=== PATIENT | female | born 2005 | race Caucasian/White ===

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

== ENCOUNTER → 2023-02-17 14:27 | Outpatient (CLI) | payer OTHER, SELFPAY ==
[2023-02-17 13:47] LABS: HCG,Quantitative < 2 mIU/ml (0-5.42)
== END ==
PROVIDERS: PCP Family Medicine; Visit Provider Nurse Practitioner Psychiatric/Mental Health
DX: Z32.00 Encounter for pregnancy test, result unknown (principal); F41.1 Generalized anxiety disorder
CPT/HCPCS: 36415; 84702

== ENCOUNTER 2024-09-22 18:28 | Outpatient (CLI) | payer BC, SELFPAY ==
[2024-09-22 18:32] LABS: Microscopic, Urine URINE MICROSCOPIC (MICROSCOPIC)
[2024-09-22 19:35] LABS: Appearance,Urine CLEAR (Clear); Bilirubin,Urine Negative (Negative); Blood, Urine Negative (Negative); Color,Urine YELLOW (Yellow); Glucose,Urine (UA) Negative (Negative); Ketones,Urine Negative (Negative); Leukocyte Esterase,Urine Negative (Negative); Nitrate,Urine Negative (Negative); Protein,Urine Negative (Negative); Specific Gravity, Urine 1.015 (1.005-1.030); Urobilinogen,Urine 0.2 EU/dl (0.2)
[2024-09-22 21:19] LABS: Bacteria,Urine 2+ /lpf; RBC,Urine Occasional #/hpf (0-3); Squamous Epithelial Cell,Urine Occasional #/hpf (0-5); WBC,Urine Occasional #/hpf (0-3)
[2024-09-23 20:06] LABS: Chlamydia trachomatis Negative (Negative); Neisseria gonorrhoeae Negative (Negative); Trichomonas vaginalis Negative (Negative)
== END 2024-09-22 23:59 | disposition home or self-care (01) ==
LOC: LAB.DROPOF 18:29
PROVIDERS: PCP Nurse Practitioner Family; Visit Provider Nurse Practitioner Family
DX: R10.9 Unspecified abdominal pain (principal); Z30.9 Encounter for contraceptive management, unspecified
CPT/HCPCS: 81001; 81025; 87086; 87491; 87591; 87661

== ENCOUNTER 2024-10-06 15:04 | Outpatient (CLI) | payer BC, SELFPAY ==
--- OUTSIDE RECORDS SUMMARY | 2024-08-09 07:45 | XMS_ITS ---
Author Organization [facility] Address [address] [place] [address] Care Team Providers Care Rodeo Clown Name Role Phone sandra sullivan Primary Care Provider Paulo Anthony Unavailable [phone] Allergies No Known Allergies REASON FOR VISIT Ear Pain Medications Medication SIG (Take, Route, Frequency, Duration) Notes Start Date End Date Status Amoxicillin-Pot Clavulanate 500-125 MG 1 tablet Orally every 12 hrs for 10 days 08/09/2024 08/19/2024 Active predniSONE 10 MG 1 tablet with food o r milk Orally twice a day for 6 days 08/09/2024 08/15/2024 Active traZODone HCl 100 MG 1 tablet at bedtime as needed Orally Once a day Active hydrOXYzine Pamoate 50 MG 1 capsule at b edtime as needed Orally Once a day Active Social History Tobacco Use: Social History Observation Description Date Details (start date - stop date) Never Smoker NA - NA Tobacco Control (Standard) Question Answer Notes Tobacco use: Nonsmoker AUDIT-C (Standard) Question Answer Notes Did you have a drink contain ing alcohol in the past year? Yes How often did you have a dri nk containing alcohol in the past year? Monthly or less (1 point) How many drinks did you have on a typical day when you were drinking in the past year? 1 or 2 drinks (0 point) How often did you have six o r more drinks on one occasion in the past year? Never (0 point) Points 1 Interpretation Negative Problems Problem Type SNOMED Code ICD Code Onset Dates Problem Status W/U Status Risk Notes Problem Acute bilateral otitis media (476112705) Acute bilateral otitis media (H66.93) Active confirmed Problem Middle ear effusion, bilateral (H65.93) Active confirmed Vital Signs Temperature 97.7 degrees Fahrenheit 08/10/19 Respiratory Rate 18 /min 08/09/2024 Blood pressure systolic 116 mm Hg 08/10/19 25 Blood pressure diastolic 68 mm Hg 025 Height 064 in 08/09/2024 Weight 0130 lbs 08/09/2024 BMI 22.31 kg/m2 08/09/2024 Encounters Encounter Location Date Provider Diagnosis [id number] [address] 08/09/2024 Pualo Olsen Acute bilateral otitis media H66.93 and Middle ear effusion, bilateral H65.93 Assessments Encounter Date Diagnosis (ICD Code) Assessment Notes Treatment Notes Treatment Clinical Notes Section Notes 08/09/2024 Acute bilateral otitis media (ICD-10 - H66.93) Ear Infection (Otitis Media): Care Instructions material was printed 08/09/2024 Middle ear effusion, bilateral (ICD-10 - H65.93) Middle Ear Fluid: Care Instructions material was printed 08/09/2024 Other Amoxicillin and Clavulanic Acid material was printed, Prednisone material was printed Plan Of Treatment Medication Medication Name Sig Start Date Stop Date Notes Amoxicillin-Pot Clavulanate 500-125 MG 1 tablet Orally every 12 hrs for 10 days 08/09/2024 08/19/2024 predniSONE 10 MG 1 tablet with food o r milk Orally twice a day for 6 days 08/09/2024 08/15/2024 Treatment Notes Assessment Notes Acute bilateral otitis media Ear Infecti on (Otitis Media): Care Instructions material was printed Middle ear effusion, bilateral Middle Ea r Fluid: Care Instructions material was printed Other Amoxicillin and Clav ulanic Acid material was printed, Prednisone material was printed Next Appt Details Follow Up: prn, Reason: Progress Notes * BRIAN ANSARIDOB:2004 (19 yo F)Acc No.[id number]:08/09/2024 Progress Notes Patient: BRIAN ALVAREZ Provider: Blanca Olsen, MSN, AIRPORT SCREENER, NERVE SPECIALIST-BC :2005 A ge:19 Y S ex:Female Date:08/09/2024 External Visit ID:[id number] Address:[address] [place], [place]-[address] Pcp:sandra sullivan Subjective: * Chief Complaints: * 1 . Ear Pain. * HPI: C onstitutional: 19 year old female presents to clinic with complaints of ear pain/fullness starting 3 days ago. Pain 5/10 on Beatty scale. Has not taken any otc medications. Has not received flu vaccination. D epression/Anxiety Screening: Depression Screening D epression Screening Findings N egative. P HQ-2 (2015 Edition) L ittle interest or pleasure in doing things? N ot at all, F eeling down, depressed, or hopeless? N ot at all, T otal Score 0 . * ROS: E ARS: ear pain y es. s ensation of fullness y es. ? * Medical History: A nxiety, Sleep pattern disturbance. * Surgical History: D enies Past Surgical History. * Hospitalization/Major Diagno stic Procedure: D enies Past Hospitalization. * Family History: F ather: alive. M other: alive. 1 brother(s) - healthy. . N on-Contributory. * Social History: D rug/Alcohol: A DAVID-C (Standard) D id you have a drink containing alcohol in the past year? Y es, H ow often did you have a drink containing alcohol in the past year? M onthly or less (1 point), H ow many drinks did you have on a typical day when you were drinking in the past year? 1 or 2 drinks (0 point), H ow often did you have six or more drinks on one occasion in the past year? N ever (0 point), P oints 1 , I nterpretation N egative. T obacco Use: T obacco Control (Standard) T obacco use: N onsmoker. * Medications: T aking hydrOXYzine Pamoate 50 MG Capsule 1 capsule at bedtime as needed Orally Once a day , Taking traZODone HCl 100 MG Tablet 1 tablet at bedtime as needed Orally Once a day , Medication List reviewed and reconciled with the patient * Allergies: N .K.D.A. Objective: * Vitals: T emp:97.7, Pulse:99, RR:18, BP:116/68, Pain (at time of visit):5/10, LNMP: 07-18-24, Ht: 064, Wt: 0130, BMI:22.31. * Examination: F ocused Exam: GENERAL: a lert and oriented x 4, no acute distress, dress appropriate for the environment & temp, well-groomed, appears well. HEAD: s ymmetrical facial features, normocephalic. EYES: c onjunctiva pink w/o inflammation or pallor, sclera white, PERRLA, nystagmus absent, pupil size normal, no discharge. EARS: b ilateral, ---TM---, TM red, TM dull, dense white plaques, TM bulging, fluid visualized behind TM. NOSE - --DISCHARGE---, no discharge, ---SEPTUM---, no septal deviation or perforation, ---MUCOSA---, inflamed mucosa, turbinates swollen, red. MOUTH AND THROAT: l ips pink, moist, oral mucosa pink, moist, w/o lesions or discolorations, uvula midline, pharynx pink, moist, w/o infection, no tonsillar enlargement, no exudate. NECK: - --LYMPH NODES---, Post Auricular lymph nodes, Tender, Shotty nodes. RESPIRATORY: b reath sounds clear throughout, respiration even and unlabored. Assessment: * Assessment: 1. A cute bilateral otitis media - H66.93 (Primary) 2 . M iddle ear effusion, bilateral - H65.93 Plan: * Treatment: 2. M iddle ear effusion, bilateral Start predniSONE Tablet, 10 MG, 1 tablet with food or milk, Orally, twice a day, 6 days, 12 Tablet, Refills 0. Notes: Middle Ear Fluid: Care Instructions material was printed 3. O thers Notes: Amoxicillin and Clavulanic Acid material was printed, Prednisone material was printed ? * Immunizations: Immunization record has been reviewed and updated. * Procedure Codes: C ODER Sending to Commercial Interior Designer for Code Review * Follow Up: p rn * Billing Information: * Visit Code: * Procedure Codes: CAR ICER Sending to Commercial Interior Designer for Code Review. Care Plan Details* Images * [id number], Haley [id number] * Sign off status: Completed true * Provider: Blanca Olsen, MSN, AIRPORT SCREENER, NERVE SPECIALIST-BC Date: 0 08/09/2024 Generated for Printing/Faxing/eTransmitting on: 0 10/06/2024 02:07 PM CDT History and Physical Notes * HPI (History of Present Illness) Category Sub-Category Detail Notes Category Not es Constitutional 19 year old female presents to clinic with complaints of ear pain/fullness starting 3 days ago. Pain 5/10 on Beatty scale. Has not taken any otc medications. Has not received flu vaccination. Depression/Anxiety Screening Depression Screening Depression Screening Findings: Negative PHQ-2 (2015 Edition) Little interest or pleasure in doing things?: Not at all Feeling down, depressed, or hopeless?: N ot at all Total Score: 0 Examination Category Sub-Category Detail Notes Category Not es Focused Exam HEAD: symmetrical facial features, normocephalic EYES: conjunctiva pink w/o inflammation or pallor, sclera white, PERRLA, nystagmus absent, pupil size normal, no discharge EARS: bilateral, ---TM---, TM red, TM dull, dense white plaques, TM bulging, fluid visualized behind TM NOSE ---DISCHARGE---, no discharge, ---SEPTUM---, no septal deviation or perforation, ---MUCOSA---, inflamed mucosa, turbinates swollen, red MOUTH AND THROAT: lips pink, moist, or al mucosa pink, moist, w/o lesions or discolorations, uvula midline, pharynx pink, moist, w/o infection, no tonsillar enlargement, no exudate NECK: ---LYMPH NODES---, P ost Auricular lymph nodes, Tender, Shotty nodes RESPIRATORY: breath sounds clear throughout, respiration even and unlabored GENERAL: alert and oriented x 4, no acute distress, dress appropriate for the environment & temp, well-groomed, appears well
--- OUTSIDE RECORDS SUMMARY | 2024-10-06 15:07 | XMS_ITS | Encounter Summary ---
Author Organization Healthcare Address [address] [place] [address] Care Team Providers Care Saddle And Side Wire Stitcher Name Role Phone Pcp, No Primary Care Provider Unavailabl e Encounter Details Date Type Department Care Team (Latest Contact Info) Description 09/21/2024 Travel Social History Tobacco Use Types Packs/Day Years Used Date Smoking Tobacco: Never Assessed Comments Unknown Sex and Gender Information Value Date Recorded Sex Assigned at Not on file Legal Sex Female 7:33 PM EDT Gender Identity Not on file Sexual Orientation Not on file documented as of this encounter Plan of Treatment Not on file documented as of this encounter Visit Diagnoses Not on filedocumented in this encounter Additional Health Concerns Assessment Noted Time A Body Mass Index follow-up plan has been documented for the patient 09/21/2024 1:25 PM EDT documented as of this encounter Care Teams Saddle And Side Wire Stitcher Relationship Specialty Start Date End Date Pcp, Rocio [address] [place] [address] PCP - General Family Medicine 08/31/24 documented as of this encounter
--- OUTSIDE RECORDS SUMMARY | 2024-10-06 15:07 | XMS_ITS | Encounter Summary ---
Author Organization Healthcare Address [address] [place] [address] Care Team Providers Care Flotation Tender Name Role Phone Pcp, No Primary Care Provider Unavailabl e Encounter Details Date Type Department Care Team (Latest Contact Info) Description 09/01/2024 Travel Social History Tobacco Use Types Packs/Day [...] plan has been documented for the patient 09/01/2024 3:31 PM EDT documented as of this encounter Care Teams Flotation Tender Relationship Specialty Start Date End Date Pcp, Rocio [address] [place] [address] PCP - General Family Medicine 08/31/24 documented as of this encounter
--- OUTSIDE RECORDS SUMMARY | 2024-10-06 15:08 | XMS_ITS | Clinical Summary ---
Author Organization Healthcare Address [address] [place] [address] Care Team Providers Care Plastic Surgeon Name Role Phone Pcp, No Primary Care Provider Unavailabl e Encounters * This document contains information received from the source organization and may not represent a complete record from that organization. Date Type Department Care Team Description 09/21/2024 Travel 09/01/2024 Travel from Last 3 Months Immunizations Immunization Administration Dates Next Due DTaP, Unspecified 08/23/2008, 5,2003,2003, 2003 HPV, Quadrivalent 11/13/2015 Hep A, Unspecified 12/01/2017,06/02/2017 Hep B, Unspecified 2003,2003, 003 Hep B, adult 01/15/2024 HepB-CpG 01/15/2024 HiB, unspecified 07/24/2004,02/10/2004, 4,2003 IPV 08/23/2008 MMR 08/23/2008,03/13/2004 Meningococcal ACWY, unspecified 05/10/2015 Tdap 09/01/2024 Varicella 05/10/2015,07/24/2004 Social History Tobacco Use Types Packs/Day Years Used Date Smoking Tobacco: Never Assessed Comments Unknown Sex and Gender Information Value Date Recorded Sex Assigned at Not on file Legal Sex Female 7:33 PM EDT Gender Identity Not on file Sexual Orientation Not on file Plan of Treatment Health Maintenance Due Date Last Done Comments [facility]-Depression Screening 2003 [facility]-Infant/Child/Adol SDOH Screenings 2003 [facility]-IPV Vaccines (2 of 3 - 4-dose series) 09/20/2008 08/23/2008, 03/13/2004, 2003, Additional history exists HPV Vaccines (2 - 2-dose series) 05/15/2016 11/13/2015 [facility]- SDOH Screenings 2021 [facility]-Adult SDOH Screenings 2021 [id number] Vaccine (1 - season) 2023 [facility]-Pap Smear 2024 [facility]-Influenza Vaccine (Season Ended) 2024 [facility]-DTaP,Tdap,and Td Vaccines (8 - Td or Tdap) 09/01/2034 09/01/2024, 05/10/2015, 08/23/2008, Additional history exists [facility]-Zoster Vaccines (1 of 2) 2053 05/10/2015, 07/24/2004 [facility]-HIB Vaccines Completed 07/24/2004, , 2003, Additional history exists [facility]-Varicella Vaccines Completed 05/10/2015, 2004 [facility]-Hepatitis A Vaccines Completed 12/01/2017, 08/2017 [facility]-Hepatitis B Vaccines Completed 024, 01/15/2024, 2003, Additional history exists [facility]-Pneumococcal Vaccine: Pediatrics (0 to 5 Years) and At-Risk Patients (6 to 49 Years) Aged Out No longer eligible based on patient's age to complete this topic [facility]-Rotavirus Vaccines Aged Out No lo nger eligible based on patient's age to complete this topic Procedures Procedure Name Priority Date/Time Associated Diagnosis Comments QUANTIFERON TB GOLD PLUS Routine 09/01/2024 3:30 PM EDT Encounter for screening for respiratory tuberculosis from Last 3 Months Results * Quantiferon TB Gold Plus (09/01/2024 3:30 PM EDT) Quantiferon TB Gold Plus Result Negative Negative 09/02/2024 5:[address] [facility] Nill Value 0.0377 IU/mL 09/02/2024 5:[address] [facility] TB Antigen 1 -0.0045 IU/mL 09/02/2024 5:[address] [facility] TB Antigen 2 0.0051 IU/mL 09/02/2024 5:[address] [facility] TB Mitogen 9.9623 IU/mL 09/02/2024 5:[address] [facility] Blood Venous blood specimen / Unknown Venipuncture / Unknown 09/01/2024 3:30 PM EDT 09/01/2024 4:[address] [facility] - 09/02/2024 5:23 PM EDT Responses to the Mitogen positive control and occasionally to TB antigen can be above the assay range. For calculation purposes: IFN-gamma values > 10 IU/mL are handled as 10 IU/mL. us Austin Atkins MD LAB BLOOD ORDERABLES Final R esult [facility] [address] [place] [address] from Last 3 Months Care Teams Plastic Surgeon Relationship Specialty Start Date End Date Pcp, No [address] [place] [address] PCP - General Family Medicine 08/31/24
--- NOTE | 2024-10-06 15:30 | US_ITS ---
PROCEDURE INFORMATION: Exam: US Right Breast, Complete Exam date and time: 10/06/2024 2:23 PM Age: 19 years old Clinical indication: New palpable area of concern in the right breast. TECHNIQUE: Imaging protocol: Complete ultrasound of all four quadrants of the right breast and the retroareolar regions, including ultrasound of the axilla when performed. COMPARISON: US BREAST RT COMPLETE 04/30/2019 3:14 PM FINDINGS: ULTRASOUND: Breast ultrasound findings: In the area of pain, right breast upper outer quadrant, 9 o'clock axis, 3 cm from the nipple, there is an oval hypoechoic parallel mass that measures 0.7 x 0.3 x 0.6 cm. Also seen in the right breast upper outer quadrant, 10 o'clock axis is a 0.5 x 0.8 x 0.3 cm oval hypoechoic circumscribed mass with morphology similar to the finding at 9 o'clock, 3 cm from the nipple. Complete scanning of the right breast is performed. Incidentally measured is an area of hypoechoic breast tissue in the lower inner quadrant, 4 o'clock axis, 3 cm from the nipple measuring 0.7 x 0.3 x 0.7 cm. This does not appear to be a discrete mass. No shadowing or distortion. No axillary adenopathy. IMPRESSION: 1. No morphologically suspicious finding is seen. In the area of pain and palpable concern, right breast upper outer quadrant, 9 o'clock axis, 3 cm from the nipple, there is a probably benign hypoechoic mass. 2. Probably benign hypoechoic mass in the right breast 10 o'clock axis. 3. Probably benign hypoechoic glandular tissue in the right breast 4 o'clock axis, 3 cm from the nipple. 4. A six-month follow-up right breast ultrasound is recommended for the above findings. 5. Further evaluation of a palpable abnormality should be based on clinical grounds regardless of radiographic findings or lack thereof. ASSESSMENT: BI-RADS Category 3: Probably benign.
== END 2024-10-06 23:59 | disposition home or self-care (01) ==
LOC: RAD 15:05
PROVIDERS: PCP Nurse Practitioner Family; Visit Provider Nurse Practitioner Family
DX: N63.11 Unspecified lump in the right breast, upper outer quadrant (principal)
CPT/HCPCS: 76641